=== PATIENT | female | born 1965 | race Caucasian/White ===

== ENCOUNTER 2024-07-17 20:48 | Emergency (ER) | payer OTHER ==
[~2024-07-17] VITALS: Ht 154.9 cm; Wt 53.1 kg
[2024-07-17 21:15] VITALS: BP 158/89; PULSE 88; RESP 18; TEMP 98; O2SAT 98
[2024-07-17 23:05] VITALS: O2SAT 98
[2024-07-17] MEDS ORDERED: BACTO TP (23:22)
[2024-07-17] MEDS ORDERED: CLIN300C2 PO (23:22)
[2024-07-17] MEDS ORDERED: LIDOCAINE MPF 1% 0 ML ONE (23:39)
[2024-07-17] MEDS: CLINDAMYCIN 600 MG/4 ML VIAL IM ONE (23:44)
[2024-07-18] MEDS: BACITRACIN OINT 500 UNITS/GM PKT TP ONE (00:02)
== END 2024-07-18 01:16 | disposition home or self-care (01) ==
LOC: MED 20:48
DX: L03.317 Cellulitis of buttock (principal); L03.116 Cellulitis of left lower limb; E11.9 Type 2 diabetes mellitus without complications; M06.9 Rheumatoid arthritis, unspecified; Z79.899 Other long term (current) drug therapy
CPT/HCPCS: 96372; 99283; J3490; J2001